=== PATIENT | male | born 1950 | race Caucasian/White ===

== ENCOUNTER 2019-03-12 10:07 | Emergency (ER) | payer MEDICARE, MEDICAID ==
[~2019-03-12] VITALS: Ht 187.9 cm; Wt 95.4 kg
[2019-03-12 10:35] LABS: BASOPHILS % (AUTO) 1 % (0-10); EOSINOPHILS % (AUTO) 1 % (0-10); HEMATOCRIT 40 % (40-54); HEMOGLOBIN 13.8 G/DL (13.3-17.7); LYMPHOCYTES % (AUTO) 31 % (12-44); MEAN CORPUSCULAR HEMOGLOBIN 30 PG (25-34); MEAN CORPUSCULAR HGB CONC 35 G/DL (32-36); MEAN CORPUSCULAR VOLUME 87 FL (80-99); MONOCYTES % (AUTO) 16 % (0-12); NEUTROPHILS % (AUTO) 52 % (42-75); PLATELET COUNT 180 10^3/uL (130-400); RED CELL DISTRIBUTION WIDTH 13.9 % (10.0-14.5)
[2019-03-12 10:36] LABS: BASOPHILS # (AUTO) 0.1 10^3/uL (0.0-0.1); EOSINOPHILS # (AUTO) 0.1 10^3/uL (0.0-0.3); LYMPHOCYTES # (AUTO) 2.1 X 10^3 (1.0-4.0); MONOCYTES # (AUTO) 1.1 X 10^3 (0.0-1.0); NEUTROPHILS # (AUTO) 3.6 X 10^3 (1.8-7.8)
--- NOTE | 2019-03-12 10:40 | ED General ---
General Chief Complaint: General Problems/Pain Stated Complaint: FALL; SYNCOPE Nursing Sepsis Screen: No Definite Risk Source of Information: Patient Exam Limitations: No Limitations History of Present Illness Date Seen by Provider: Mar 12, 2019 Time Seen by Provider: 10:15 Initial Comments The patient is a pleasant 68-year-old male who presents for evaluation of lightheadedness intermittently for the last week or so. He states that when he gets up from a seated or lying position and starts to walk he feels like his legs give out on him. He states that this feeling passes within minutes and then he feels okay. He denies chest pain or shortness of breath, fevers or chills, nausea or vomiting, dark or bloody stools, chest pain or shortness of breath, headache, palpitations, or syncope. He is alert and oriented 4, calm, and appears to be in no distress this time. Timing/Duration: 1 Week Severity: Mild Associated Systoms: Denies Symptoms Allergies and Home Medications Allergies Coded Allergies: No Known Drug Allergies (Unverified , 03/12/19) Patient Home Medication List Home Medication List Reviewed: Yes Review of Systems Review of Systems Constitutional: no symptoms reported EENTM: no symptoms reported Respiratory: no symptoms reported Cardiovascular: no symptoms reported Gastrointestinal: no symptoms reported Genitourinary: no symptoms reported Musculoskeletal: no symptoms reported Skin: no symptoms reported Psychiatric/Neurological: No Symptoms Reported, Other (light-headed) Hematologic/Lymphatic: No Symptoms Reported Immunological/Allergic: no symptoms reported All Other Systems Reviewed Negative Unless Noted: Yes Past Lzfgder-Gpqyny-Hcpvct Hx Past Med/Social Hx: Reviewed Nursing Past Med/Soc Hx Patient Social History Recent Foreign Travel: No Contact w/Someone Who Travel: No Recent Infectious Disease Expo: No Physical Abuse: No Sexual Abuse: No Mistreated: No Fear: No Physical Exam Vital Signs Vital Signs - First Documented 03/12/19 10:29 Temp 36.5 Pulse 73 Resp 18 B/P (MAP) 139/85 (103) Pulse Ox 99 O2 Delivery Room Air Capillary Refill : Less Than 3 Seconds Height, Weight, BMI Height: '" Weight: lbs. oz. 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59 4.35-5.85 10^6/uL Hemoglobin 13.8 13.3-17.7 G/DL Hematocrit 40 40-54 % Mean Corpuscular Volume 87 80-99 FL Mean Corpuscular Hemoglobin 30 25-34 PG Mean Corpuscular Hemoglobin Concent 35 32-36 G/DL Red Cell Distribution Width 13.9 10.0-14.5 % Platelet Count 180 130-400 10^3/uL Mean Platelet Volume 10.0 7.4-10.4 FL Neutrophils (%) (Auto) 52 42-75 % Lymphocytes (%) (Auto) 31 12-44 % Monocytes (%) (Auto) 16 H 0-12 % Eosinophils (%) (Auto) 1 0-10 % Basophils (%) (Auto) 1 0-10 % Neutrophils # (Auto) 3.6 1.8-7.8 X 10^3 Lymphocytes # (Auto) 2.1 1.0-4.0 X 10^3 Monocytes # (Auto) 1.1 H 0.0-1.0 X 10^3 Eosinophils # (Auto) 0.1 0.0-0.3 10^3/uL Basophils # (Auto) 0.1 0.0-0.1 10^3/uL Sodium Level 135 135-145 MMOL/L Potassium Level 3.8 3.6-5.0 MMOL/L Chloride Level 99 98-107 MMOL/L Carbon Dioxide Level 25 21-32 MMOL/L Anion Gap 11 5-14 MMOL/L Blood Urea Nitrogen 10 7-18 MG/DL Creatinine 0.98 0.60-1.30 MG/DL Estimat Glomerular Filtration Rate > 60 BUN/Creatinine Ratio 10 Glucose Level 110 H 70-105 MG/DL Calcium Level 8.4 L 8.5-10.1 MG/DL Corrected Calcium 9.0 8.5-10.1 MG/DL Magnesium Level 1.7 1.6-2.4 MG/DL Total Bilirubin 0.8 0.1-1.0 MG/DL Aspartate Amino Transf (AST/SGOT) 24 5-34 U/L Alanine Aminotransferase (ALT/SGPT) 33 0-55 U/L Alkaline Phosphatase 83 40-136 U/L Troponin I < 0.30 <0.30 NG/ML Total Protein 6.6 6.4-8.2 GM/DL Albumin 3.3 3.2-4.5 GM/DL My Orders Orders - KAYLIN POWELL DO Cbc With Automated Diff (03/12/19 10:15) Comprehensive Metabolic Panel (03/12/19 10:15) Magnesium (03/12/19 10:15) Ua Culture If Indicated (03/12/19 10:15) Ekg Tracing (03/12/19 10:15) Troponin I Fs (03/12/19 10:15) Ns Iv 1000 Ml (Sodium Chloride 0.9%) (03/12/19 10:45) Vital Signs/I&O 03/12/19 10:29 Temp 36.5 Pulse 73 Resp 18 B/P (MAP) 139/85 (103) Pulse Ox 99 O2 Delivery Room Air Capillary Refill : Less Than 3 Seconds Blood Pressure Mean: 103 Progress Note : Progress Note @1150 - patient updated on lab results. He has no complaints at this time states that he is feeling better. Advised the patient to allow extra time when going from a seated or lying position to standing up position to prevent lightheadedness. He expresses verbal understanding and agreement with the plan and is stable for discharge at this time. Advised the patient to follow up with his primary care physician within the next 2-3 days and to return to the emergency Department immediately for new or worsening symptoms. ECG EKG : Comment @1036 - Normal sinus rhythm, rate of 66, borderline left axis deviation, no acute ischemic findings noted, no STEMI, reviewed and interpreted by myself Departure Impression Primary Impression: Lightheadedness Additional Impression: Orthostatic dizziness Disposition: 01 HOME, SELF-CARE Condition: Stable Departure-Patient Inst. Decision time for Depature: 11:54 Referrals: [facility] [place] Patient Instructions: Dizziness, Nonvertigo, (DC) Add. Discharge Instructions: Follow-up with your doctor in the next 2-3 days. Return to the emergency Department immediately for new or worsening symptoms. When going from a seated or lying position give herself extra time before starting to walk so your blood pressure does not go too low. KAYLIN POWELL DO Mar 12, 2019 10:40
[2019-03-12] MEDS ORDERED: NS IV 1000 ML 1,000 ML IV SCH (10:45)
[2019-03-12 10:57] LABS: POTASSIUM 3.8 MMOL/L (3.6-5.0); SODIUM 135 MMOL/L (135-145)
[2019-03-12 10:58] LABS: ALANINE AMINOTRANSFERASE 33 U/L (0-55); ALKALINE PHOSPHATASE 83 U/L (40-136); BILIRUBIN,TOTAL 0.8 MG/DL (0.1-1.0); BUN/CREATININE RATIO 10; CALCIUM 8.4 MG/DL (8.5-10.1); CARBON DIOXIDE 25 MMOL/L (21-32); CHLORIDE 99 MMOL/L (98-107); CREATININE SERUM 0.98 MG/DL (0.60-1.30); GFR ESTIMATED > 60; GLUCOSE 110 MG/DL (70-105); MAGNESIUM 1.7 MG/DL (1.6-2.4); TOTAL PROTEIN 6.6 GM/DL (6.4-8.2)
[2019-03-12 10:59] LABS: ALBUMIN 3.3 GM/DL (3.2-4.5)
[2019-03-12 12:03] VITALS: BP 142/87
== END 2019-03-12 11:58 | disposition home or self-care (01) ==
LOC: EDUNIT# 10:07 → ER FS 10:08
DX: R42 Dizziness and giddiness (principal)
CPT/HCPCS: 36415; 80053; 83735; 84484; 85025; 93005; 96360

== ENCOUNTER → 2019-05-16 | Outpatient (CLI) | payer MEDICARE, MEDICAID ==
--- NOTE | 2019-05-16 10:45 | Diagnostic Imaging Report ---
PROCEDURE: CT head without contrast. TECHNIQUE: Multiple contiguous axial images were obtained through the brain without the use of intravenous contrast. Auto Exposure Controls were utilized during the CT exam to meet ALARA standards for radiation dose reduction. INDICATION: Head injury 2 months ago. Patient now complains of dizziness. No prior studies are available for comparison. There is generalized cerebral atrophy. There is periventricular hypodensity noted consistent with chronic microvascular ischemia. No sulcal effacement or midline shift is identified. No acute intra-axial or extra-axial hemorrhage is detected. Cisterns are patent. Visualized paranasal sinuses are clear. IMPRESSION: Chronic changes. No acute intracranial process is detected. Dictated by: Dictated on workstation # [id number]
== END ==
LOC: RAD FS 10:03
PROVIDERS: ATTEND Family Medicine
DX: S09.90XA Unspecified injury of head, initial encounter (principal); R42 Dizziness and giddiness; X58.XXXA Exposure to other specified factors, initial encounter
CPT/HCPCS: 70450

== ENCOUNTER → 2019-09-30 | Outpatient (CLI) | payer MEDICARE, MEDICAID ==
[~2019-09-30] MED LIST: GADOBUTROL 10 MMOL/10 ML (GADAVIST) VIAL IV ONE
[2019-09-30 12:21] LABS: ALBUMIN 4.5 GM/DL (3.2-4.5); POTASSIUM 4.5 MMOL/L (3.6-5.0)
[2019-09-30 12:23] LABS: CALCIUM 9.8 MG/DL (8.5-10.1)
[2019-09-30 12:24] LABS: TOTAL PROTEIN 8.3 GM/DL (6.4-8.2)
[2019-09-30 12:26] LABS: BILIRUBIN,TOTAL 0.5 MG/DL (0.1-1.0)
[2019-09-30 12:27] LABS: CREATININE SERUM 1.39 MG/DL (0.60-1.30)
--- NOTE | 2019-09-30 14:15 | Diagnostic Imaging Report ---
PROCEDURE: MR imaging of the brain with and without contrast. TECHNIQUE: Multiplanar, multisequence MR imaging of the brain was performed with and without contrast. INDICATION: Fall, hitting the back of the head. Patient now complains of headache and balance disturbance. COMPARISON: No prior MRI brain studies available for comparison. FINDINGS: Ventricles and sulci are prominent, consistent with cerebral atrophy. There are fairly significant periventricular and subcortical white matter signal abnormalities, consistent with chronic microvascular ischemia. No diffusion restriction is identified to suggest acute ischemia. The normal expected flow-voids within the carotid siphons are seen. There is no midline shift. No acute intra-axial or extra-axial hemorrhage is detected. No abnormal enhancement following contrast administration is identified. The corpus callosum is unremarkable. The sella and parasellar structures are unremarkable. IMPRESSION: Chronic changes, as described. No acute intracranial process is detected. Dictated by: Dictated on workstation # [id number]
== END ==
LOC: RAD 11:58
PROVIDERS: ATTEND Family Medicine
DX: R11.0 Nausea (principal); R42 Dizziness and giddiness
CPT/HCPCS: 36415; 70553; 80053

== ENCOUNTER 2021-04-05 14:11 | Emergency (ER) | payer MEDICARE, MEDICAID ==
[~2021-04-05] VITALS: Ht 187 cm; Wt 100.5 kg
[2021-04-05] MEDS ORDERED: ACETAMINOPHEN 500 MG TAB (TYLENOL) PO ONE (15:15)
[2021-04-05 15:25] LABS: BILIRUBIN,URINE NEGATIVE (NEGATIVE); CLARITY,URINE CLEAR; COLOR,URINE YELLOW; GLUCOSE, URINE (UA) NEGATIVE (NEGATIVE); KETONES,URINE NEGATIVE (NEGATIVE); LEUKOCYTE ESTERASE ,URINE NEGATIVE (NEGATIVE); NITRITE,URINE NEGATIVE (NEGATIVE); PH,URINE 5.5 (5-9); PROTEIN,URINE NEGATIVE (NEGATIVE)
[2021-04-05 15:33] LABS: BACTERIA,URINE NEGATIVE /HPF; WBC,URINE RARE /HPF
--- NOTE | 2021-04-05 15:56 | ED Abdominal Pain ---
General Chief Complaint: Abdominal/GI Problems Stated Complaint: ABD BULGE/PAIN Nursing Triage Note: Patient has presented to ER with cc of mid upper abd "bulging" off and on for the last 4 years. He reports that the area is sore and some times bulges out and some times not. He reports the area is sore. He also reports that he moved a chair a little over 2 weeks ago and about 2 weeks ago he developed a new pain in his right side. He reports the right side pain is worse when he moves or lifts or twists around. He has seen Dr. Dixon in the past about the mid upper abd pain but patient reports that nothing has ever been done about the pain. 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 Flank pain is worse with bending and rotation and is described as sharp and rated as mild to moderate. No midline pain or tenderness. No abdominal pain or tenderness. No testicular pain t enderness or hematuria. No history of kidney stones, AAA or diverticulitis. No fever chills nausea vomiting, sweats. No abdominal, pelvic pain. No constipation diarrhea, urinary frequency urgency or dysuria. No medications or therapies taken prior to ED arrival. Patient has not been evaluated by his PCP prior to today's ED visit. Timing/Duration: Changing Over Time, Other Severity/Quality: Mild Location: Other Radiation: Other Modifying Factors: Improves With Other Associated Symptoms: Other Allergies and Home Medications Allergies Coded Allergies: No Known Drug Allergies (Unverified , 03/12/19) Patient Home Medication List Home Medication List Reviewed: Yes Review of Systems Review of Systems Constitutional: see HPI EENTM: See HPI Respiratory: See HPI Cardiovascular: See HPI Gastrointestinal: See HPI Genitourinary: See HPI Musculoskeletal: see HPI Skin: see HPI Psychiatric/Neurological: See HPI Endocrine: See HPI Hematologic/Lymphatic: See HPI All Other Systems Reviewed Negative Unless Noted: Yes Past Lmwecuy-Tesoef-Vywbsz Hx Patient Social History Tobacco Use?: Yes Tobacco type used: Cigarettes Smoking Status: Heavy Tobacco Smoker Use of E-Cig and/or Vaping dev: No Substance use?: No Alcohol Use?: No Seasonal Allergies Seasonal Allergies: Yes Past Medical History Surgeries: Yes Coronary Stent Respiratory: No Cardiac: Yes Hypertension Neurological: No Genitourinary: No Gastrointestinal: No Musculoskeletal: No Endocrine: No HEENT: No Cancer: No Psychosocial: No Integumentary: No Blood Disorders: No Physical Exam Vital Signs Vital Signs - First Documented 04/05/21 14:31 Temp 37.1 Pulse 118 Resp 14 B/P (MAP) 152/89 (110) Pulse Ox 95 O2 Delivery Room Air Capillary Refill : Height/Weight/BMI Height: '" Weight: lbs. oz. kg; 28.00 BMI Method: General Appearance: WD/WN, no apparent distress HEENT: PERRL/EOMI, normal ENT inspection Neck: non-tender Respiratory: chest non-tender, lungs clear Cardiovascular: normal peripheral pulses, regular rate, rhythm Gastrointestinal: normal bowel sounds, non tender, soft, other (Large linea rectus hernia upon transitioning from seated to supine position.) Extremities: non-tender Back: normal inspection, no CVA tenderness, muscle spasm, other (Right paravertebral back pain/tenderness reproduces with palpation, lateral rotation. No rash identified. No midline pain tenderness.) Focused Exam Sepsis Stage: Ruled Out Progress/Results/Core Measures Results/Orders Lab Results Laboratory Tests Test 04/05/21 14:44 Range/Units Urine Color YELLOW Urine Clarity CLEAR Urine pH 5.5 5-9 Urine Specific Clark 1.020 1.016-1.022 Urine Protein NEGATIVE NEGATIVE Urine Glucose (UA) NEGATIVE NEGATIVE Urine Ketones NEGATIVE NEGATIVE Urine Nitrite NEGATIVE NEGATIVE Urine Bilirubin NEGATIVE NEGATIVE Urine Urobilinogen 0.2 < = 1.0 MG/DL Urine Leukocyte Esterase NEGATIVE NEGATIVE Urine RBC (Auto) NEGATIVE NEGATIVE Urine RBC NONE /HPF Urine WBC RARE /HPF Urine Squamous Epithelial Cells NONE /HPF Urine Crystals NONE /LPF Urine Bacteria NEGATIVE /HPF Urine Casts NONE /LPF Urine Mucus SMALL H /LPF Urine Culture Indicated NO My Orders Orders - MCKAYLA HOWE DO Urinalysis (04/05/21 15:09) Acetaminophen Tablet (Tylenol Tablet) (04/05/21 15:15) Medications Given in ED Current Medications Medications Dose Ordered Sig/Troy Route Start Time Stop Time Status Last Admin Dose Admin Acetaminophen 1,000 mg ONCE ONCE PO 04/05/21 15:15 04/05/21 15:16 DC 04/05/21 15:13 1,000 MG Vital Signs/I&O 04/05/21 14:31 Temp 37.1 Pulse 118 Resp 14 B/P (MAP) 152/89 (110) Pulse Ox 95 O2 Delivery Room Air Blood Pressure Mean: 110 Departure Communication (Admissions) UA. Patient with reproducible musculoskeletal pain without neurologic deficit. Tylenol given. 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 Recommendations are supportive care with PCP follow-up. Impression Primary Impression: Rectus diastasis Additional Impression: Acute lumbar back pain Disposition: HOME, SELF-CARE Condition: Stable Departure-Patient Inst. Decision time for Depature: 15:58 Referrals: SELF,VANESSA SNOW (PCP/Family) Primary Care Physician Patient Instructions: Abdominal Hernia (DC), Acute Pain, Adult Add. Discharge Instructions: Please take 650 mg of Tylenol 3 times daily for low back pain and Flexeril as directed. Avoid strenuous physical activity and heavy lifting. Follow-up with your PCP in 2 to 3 weeks for reevaluation. Return to the ED if new or worsening symptoms. All discharge instructions reviewed with patient and/or family. Voiced understanding. Scripts Acetaminophen (Acetaminophen) 650 Mg/20.3 Ml Solution 650 MG PO Q8H, #30 EA Prov: MCKAYLA HOWE DO 04/05/21 Cyclobenzaprine HCl (Cyclobenzaprine HCl) 10 Mg Tablet 10 MG PO TID, #30 TAB Prov: MCKAYLA HOWE DO 04/05/21 MCKAYLA HOWE DO Apr 05, 2021 15:56
[2021-04-05 15:57] VITALS: BP 129/76
[2021-04-05] MEDS ORDERED: CYCL10TA9 PO (16:00)
[2021-04-05] MEDS ORDERED: ACET650S27 PO (16:01)
[2021-04-05] MEDS ORDERED: ACET-93 PO (16:03)
== END 2021-04-05 16:07 | disposition home or self-care (01) ==
LOC: EDUNIT# 14:11 → ER FS 14:14
DX: M62.08 Separation of muscle (nontraumatic), other site (principal); I10 Essential (primary) hypertension; F17.210 Nicotine dependence, cigarettes, uncomplicated
CPT/HCPCS: 81000; 99283

== ENCOUNTER 2021-09-30 19:58 | Emergency (ER) | payer MEDICARE, MEDICAID ==
[~2021-09-30] VITALS: Ht 185.4 cm; Wt 100.0 kg
[~2021-09-30 19:58] MED LIST changes: +ACET-93 PO; +ACET650S27 PO; +CYCL10TA25 PO; -GADOBUTROL 10 MMOL/10 ML (GADAVIST) VIAL IV ONE
[2021-09-30 20:21] LABS: BASOPHILS % (AUTO) 0 % (0-10); EOSINOPHILS # (AUTO) 0.4 10^3/uL (0.0-0.3); EOSINOPHILS % (AUTO) 4 % (0-10); HEMATOCRIT 43 % (40-54); HEMOGLOBIN 14.9 g/dL (13.3-17.7); LYMPHOCYTES # (AUTO) 3.4 10^3/uL (1.0-4.0); LYMPHOCYTES % (AUTO) 33 % (12-44); MEAN CORPUSCULAR HEMOGLOBIN 30 pg (25-34); MEAN CORPUSCULAR HGB CONC 34 g/dL (32-36); MEAN CORPUSCULAR VOLUME 88 fL (80-99); MEAN PLATELET VOLUME 10.1 fL (9.0-12.2); MONOCYTES % (AUTO) 9 % (0-12); NEUTROPHILS # (AUTO) 5.5 10^3/uL (1.8-7.8); NEUTROPHILS % (AUTO) 54 % (42-75); PLATELET COUNT 203 10^3/uL (130-400); WHITE BLOOD COUNT 10.3 10^3/uL (4.3-11.0)
--- NOTE | 2021-09-30 20:23 | ED General ---
General Chief Complaint: Lower Extremity Stated Complaint: LEGS SWELLING Source of Information: Patient, Old Records History of Present Illness Date Seen by Provider: September 30, 2021 Time Seen by Provider: 20:01 Initial Comments 71-year-old male presenting with complaints of swelling and his legs. He felt like the right leg was worse than the left. This is been going on for the last several weeks since he moved out of [place] where he was living with His Common-Law . He has been sleeping and living in his car, except for short periods of time where he has been able to afford a hotel room. He has not tried to go to the clinic about his symptoms. He felt like he was having pain in the hip, right kidney and his right foot tonight so he came to the ED to be checked out. He denies having symptoms like this in the past. He complains that he has no place to live and that he does not have the funds to afford a place to live. He does state that the swelling and pain improves if he is able to lay down and elevate his legs. By morning after elevating his legs, his swelling is gone and his legs feels much better. Timing/Duration: Other (for several weeks since he moved out of [place] and has been living out of his car) Severity: Moderate Modifying Factors: improves with Other (elevating his legs helps the swelling resolve) Associated Systoms: No Chest Pain, No Cough, No Diaphoresis, No Fever/Chills, No Headaches, No Loss of Appetite, No Malaise, No Nausea/Vomiting, No Rash, No Seizure, No Shortness of Air, No Syncope, No Weakness Allergies and Home Medications Allergies Coded Allergies: No Known Drug Allergies (Unverified , 03/12/19) Patient Home Medication List Home Medication List Reviewed: Yes Acetaminophen (Acetaminophen) 500 Mg Tablet, 1,000 MG PO TID Prescribed by: MCKAYLA HOWE on 04/05/21 1603 Cyclobenzaprine HCl (Cyclobenzaprine HCl) 10 Mg Tablet, 10 MG PO TID Prescribed by: MCKAYLA HOWE on 04/05/21 1600 Review of Systems Review of Systems Constitutional: No chills, No fever EENTM: no symptoms reported Respiratory: no symptoms reported Cardiovascular: no symptoms reported Gastrointestinal: other (chronic abdominal wall hernia) Genitourinary: other (pain around right kidney at times) Musculoskeletal: see HPI Skin: No change in color; dryness (dry flaky skin) Psychiatric/Neurological: Denies Headache, Denies Numbness Hematologic/Lymphatic: Denies Blood Clots Past Qxgrtls-Tqbrvq-Uzgpwb Hx Patient Social History Tobacco Use?: No Substance use?: No Seasonal Allergies Seasonal Allergies: Yes Past Medical History Surgery/Hospitalization HX: Hypertension, CAD, Cardiac Stent, Abdominal wall hernia Surgeries: Yes Coronary Stent Respiratory: No Cardiac: Yes Hypertension Neurological: No Genitourinary: No Gastrointestinal: No Musculoskeletal: No Endocrine: No HEENT: No Cancer: No Psychosocial: No Integumentary: No Blood Disorders: No Physical Exam Vital Signs Vital Signs - First Documented 09/30/21 20:00 Temp 37.1 Pulse 90 Resp 18 B/P (MAP) 154/90 (111) Pulse Ox 98 O2 Delivery Room Air Capillary Refill : Height, Weight, BMI Height: '" Weight: lbs. oz. kg; 28.00 BMI Method: General Appearance: No Apparent Distress, WD/WN HEENT: PERRL/EOMI, Pharynx Normal Neck: Full Range of Motion, Normal Inspection, Non Tender, Supple Respiratory: Chest Non Tender, Lungs Clear, Normal Breath Sounds, No Accessory Muscle Use, No Respiratory Distress Cardiovascular: Regular Rate, Rhythm, Normal Peripheral Pulses Gastrointestinal: Normal Bowel Sounds, No Pulsatile Mass, Non Tender, Soft, Hernia (ventral abdominal wall hernia) Rectal: Deferred Back: CVA Tenderness (R) Extremity: Normal Capillary Refill, Pedal Edema (trace to 1+ pitting edema BLE with right slightly worse than the left) Neurologic/Psychiatric: Alert, Oriented x3, tree 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 helper II-XII Norm as Tested Skin: Warm/Dry, Other (dry flaky skin) Progress/Results/Core Measures Suspected Sepsis SIRS Temperature: Pulse: Respiratory Rate: Laboratory Tests 09/30/21 20:08: White Blood Count 10.3 Blood Pressure / Mean: Laboratory Tests 09/30/21 20:08: Creatinine 1.41H, INR Comment 0.9, Platelet Count 203, Total Bilirubin 0.4 Results/Orders Lab Results Laboratory Tests Test 09/30/21 20:08 09/30/21 20:20 Range/Units White Blood Count 10.3 4.3-11.0 10^3/uL Red Blood Count 4.92 4.30-5.52 10^6/uL Hemoglobin 14.9 13.3-17.7 g/dL Hematocrit 43 40-54 % Mean Corpuscular Volume 88 80-99 fL Mean Corpuscular Hemoglobin 30 25-34 pg Mean Corpuscular Hemoglobin Concent 34 32-36 g/dL Red Cell Distribution Width 14.6 H 10.0-14.5 % Platelet Count 203 130-400 10^3/uL Mean Platelet Volume 10.1 9.0-12.2 fL Immature Granulocyte % (Auto) 0 % Neutrophils (%) (Auto) 54 42-75 % Lymphocytes (%) (Auto) 33 12-44 % Monocytes (%) (Auto) 9 0-12 % Eosinophils (%) (Auto) 4 0-10 % Basophils (%) (Auto) 0 0-10 % Neutrophils # (Auto) 5.5 1.8-7.8 10^3/uL Lymphocytes # (Auto) 3.4 1.0-4.0 10^3/uL Monocytes # (Auto) 1.0 0.0-1.0 10^3/uL Eosinophils # (Auto) 0.4 H 0.0-0.3 10^3/uL Basophils # (Auto) 0.0 0.0-0.1 10^3/uL Immature Granulocyte # (Auto) 0.0 0.0-0.1 10^3/uL Prothrombin Time 12.7 12.2-14.7 SEC INR Comment 0.9 0.8-1.4 Activated Partial Thromboplast Time 27 24-35 SEC D-Dimer 0.62 H 0.00-0.49 UG/ML Sodium Level 139 135-145 MMOL/L Potassium Level 4.0 3.6-5.0 MMOL/L Chloride Level 102 98-107 MMOL/L Carbon Dioxide Level 25 21-32 MMOL/L Anion Gap 12 5-14 MMOL/L Blood Urea Nitrogen 22 H 7-18 MG/DL Creatinine 1.41 H 0.60-1.30 MG/DL Estimat Glomerular Filtration Rate 53 BUN/Creatinine Ratio 16 Glucose Level 95 70-105 MG/DL Calcium Level 9.3 8.5-10.1 MG/DL Corrected Calcium 9.3 8.5-10.1 MG/DL Total Bilirubin 0.4 0.1-1.0 MG/DL Aspartate Amino Transf (AST/SGOT) 15 5-34 U/L Alanine Aminotransferase (ALT/SGPT) 12 0-55 U/L Alkaline Phosphatase 70 40-136 U/L Pro-B-Type Natriuretic Peptide 80.8 H <75.0 PG/ML Total Protein 7.0 6.4-8.2 GM/DL Albumin 4.0 3.2-4.5 GM/DL Urine Color YELLOW Urine Clarity CLEAR Urine pH 6.0 5-9 Urine Specific Blach[place] >=1.030 1.016-1.022 Urine Protein NEGATIVE NEGATIVE Urine Glucose (UA) NEGATIVE NEGATIVE Urine Ketones NEGATIVE NEGATIVE Urine Nitrite NEGATIVE NEGATIVE Urine Bilirubin NEGATIVE NEGATIVE Urine Urobilinogen 0.2 < = 1.0 MG/DL Urine Leukocyte Esterase NEGATIVE NEGATIVE Urine RBC (Auto) NEGATIVE NEGATIVE Urine RBC NONE /HPF Urine WBC NONE /HPF Urine Squamous Epithelial Cells 10-25 H /HPF Urine Crystals NONE /LPF Urine Bacteria TRACE /HPF Urine Casts PRESENT /LPF Urine Coarse Granular Casts 0-2 H /LPF Urine Mucus LARGE H /LPF Urine Culture Indicated NO My Orders Orders - LUIS BRENNER MD Comprehensive Metabolic Panel (09/30/21 20:16) Ua Culture If Indicated (09/30/21 20:16) Ed Iv/Invasive Line Start (09/30/21 20:16) Cbc With Automated Diff (09/30/21 20:16) Fibrin Degradation Products (09/30/21 20:16) Protime With Inr (09/30/21 20:16) Partial Thromboplastin Time (09/30/21 20:16) Probnp Fs (09/30/21 20:16) Enoxaparin Injection (Lovenox Injection) (09/30/21 21:21) Vital Signs/I&O 09/30/21 09/30/21 20:00 21:45 Temp 37.1 Pulse 90 79 Resp 18 17 B/P (MAP) 154/90 (111) 151/81 Pulse Ox 98 97 O2 Delivery Room Air Room Air Capillary Refill : Progress Note #1: Progress Note Obtain basic labs and include clotting factors and D-dimer. Urinalysis to evaluate. UTI to evaluate for kidney injury or UTI since he complains of right kidney pain. Allow him to rest in bed with feet elevated while awaiting labs. Progress Note #2: Progress Note Labs are stable without elevated WBC count. Chemistry shows chronic renal insufficiency, electrolytes are stable. Coags normal but he had mild elevation of D dimer at 0.62. UA shows elevated specific gravity for dehydration but no sign of infection. Counseled pt on results and chance of DVT and need for Lovenox and Doppler. Tests did rule out CHF, renal failure, electrolyte imbalance. With the swelling going down with elevation it is more likely to be related to his sleeping in his car and having legs dependent but he states he gets out and walks around [employer] and other stores to get out of his vehicle and to have air conditioning without running his car constantly. He was advised of need to call to schedule ultrasound in the am and to go to [place] to have the test done to know if there was a blood clot present or not. Departure Impression Primary Impression: Right leg swelling Additional Impressions: Left leg swelling Elevated d-dimer Disposition: HOME, SELF-CARE Condition: Stable Departure-Patient Inst. Decision time for Depature: 21:21 Referrals: SELFVANESSA MD (PCP/Family) Primary Care Physician Patient Instructions: Doppler Ultrasound, Swelling Add. Discharge Instructions: Your blood work and urine test did not show signs of kidney infection, urine infection, heart failure, kidney failure, electrolyte problems. Your Urine was concentrated showing that you need to drink more water and fluids. Your blood work did show an elevated D Dimer test. This test can be elevated due to inflammation but can also be up if there is a blood clot in your leg causing the swelling. You were given a dose of a blood thinner tonight and you will need to call in the morning to Radiology scheduling between 7 and 730 am at [facility] at [phone]. They will set up a time for you to come to [place] to have the auto transmission technician perform an ultrasound on your legs to check for blood clots as a possible reason for the swelling and pain. If this is positive the Emergency Department physician in [place] will help with your treatment from there. If it is negative for a blood clot then this may just be related to circulation and you would need to try and elevate your legs and consider wearing compression stockings or hose to help with swelling. All discharge instructions reviewed with patient and/or family. Voiced understanding. LUIS BRENNER MD September 30, 2021 20:23
[2021-09-30 20:24] LABS: INR 0.9 (0.8-1.4); PROTHROMBIN TIME PATIENT 12.7 SEC (12.2-14.7)
[2021-09-30 20:28] LABS: BILIRUBIN,URINE NEGATIVE (NEGATIVE); CLARITY,URINE CLEAR; COLOR,URINE YELLOW; GLUCOSE, URINE (UA) NEGATIVE (NEGATIVE); KETONES,URINE NEGATIVE (NEGATIVE); LEUKOCYTE ESTERASE ,URINE NEGATIVE (NEGATIVE); NITRITE,URINE NEGATIVE (NEGATIVE); PROTEIN,URINE NEGATIVE (NEGATIVE)
[2021-09-30 20:31] LABS: BILIRUBIN,TOTAL 0.4 MG/DL (0.1-1.0); CALCIUM 9.3 MG/DL (8.5-10.1); CREATININE SERUM 1.41 MG/DL (0.60-1.30)
[2021-09-30 20:32] LABS: BACTERIA,URINE TRACE /HPF
[2021-09-30 21:08] LABS: FIBRIN DEGRADATION PRODUCTS 0.62 UG/ML (0.00-0.49)
[2021-09-30] MEDS ORDERED: ENOXAPARIN 100 MG/1 ML (LOVENOX) SYR SC STA (21:21)
[2021-09-30 21:45] VITALS: BP 151/81
== END 2021-09-30 21:45 | disposition home or self-care (01) ==
LOC: EDUNIT# 19:58 → ER FS 19:59
DX: M79.89 Other specified soft tissue disorders (principal); R79.1 Abnormal coagulation profile; I12.9 Hypertensive chronic kidney disease with stage 1 through stage 4 chronic kidney disease, or unspecified chronic kidney disease; N18.9 Chronic kidney disease, unspecified
CPT/HCPCS: 36415; 80053; 81000; 83880; 85025; 85379; 85610; 85730

== ENCOUNTER → 2021-10-03 | Outpatient (CLI) | payer MEDICARE, MEDICAID ==
--- NOTE | 2021-10-03 11:01 | Diagnostic Imaging Report ---
PROCEDURE: US Venous Lower Ext Shen. INDICATION: BILATERAL LEG SWELLING, ELEVATED D-DIMER TECHNIQUE: Multiple real-time grayscale images were obtained over the lower extremities in various projections, bilaterally. Additional duplex Doppler and color Doppler images were also obtained. CORRELATION STUDY: None FINDINGS: Color and grayscale sonographic images demonstrate no intraluminal defect within the visualized portion of the common femoral, superficial femoral and/or popliteal veins to suggest thrombus formation. These vessels demonstrate normal response to compression and augmentation. No soft tissue fluid collection. Mildly prominent left inguinal lymph node. IMPRESSION: 1. Negative for deep venous thrombosis of either leg. Dictated by: Dictated on workstation # [id number]
== END ==
LOC: RAD 10:00
PROVIDERS: ATTEND Family Medicine
DX: R22.43 Localized swelling, mass and lump, lower limb, bilateral (principal)
CPT/HCPCS: 93970

== ENCOUNTER → 2021-10-11 | Outpatient (CLI) | payer MEDICARE, MEDICAID ==
--- NOTE | 2021-10-11 15:51 | Diagnostic Imaging Report ---
INDICATION: Low back pain. TIME OF EXAM: 3:05 p.m. FINDINGS: Frontal and lateral views of the lumbar spine were obtained as well as coned lumbosacral views. Curvature and alignment of the lumbar spine is normal. Vertebral body heights are maintained. No acute compression fracture is seen. There is some mild generalized degenerative disc disease with variable disc space narrowing and marginal spurring. Abdominal aorta is calcified. IMPRESSION: Lumbar spondylosis. No acute bony abnormality is detected. Dictated by: Dictated on workstation # [id number]
== END ==
LOC: RAD FS 14:51
PROVIDERS: ATTEND Nurse Practitioner Family
DX: M47.816 Spondylosis without myelopathy or radiculopathy, lumbar region (principal)
CPT/HCPCS: 72100

== ENCOUNTER → 2021-12-15 | Outpatient (CLI) | payer MEDICARE, MEDICAID | LOC: CARDFS 10:17 | PROVIDERS: ATTEND Internal Medicine Cardiovascular Disease | DX: I25.10 Atherosclerotic heart disease of native coronary artery without angina pectoris (principal) | CPT/HCPCS: 93306 ==

== ENCOUNTER 2022-03-22 08:16 | Emergency (ER) | payer MEDICARE, MEDICAID ==
[~2022-03-22] VITALS: Ht 187 cm; Wt 100.0 kg
[2022-03-22 08:24] VITALS: BP 150/89
--- NOTE | 2022-03-22 08:52 | ED Trauma-Multisystem ---
General Chief Complaint: Trauma-Non Activation Stated Complaint: FALL; RT SHOULDER INJ Nursing Triage Note: Patient has presented to ER with cc of having a fall last night between 2099 and 0. He got up to go to the bathroom and fell. He made it back to bed. This morning when he woke up - he went to the bathroom and he could not open his left eye. It is swollen shut and purple. HE complains of lower left rib pain, and right upper arm and right shoulder pain. He did take ultram just before calling EMS. Source of Information: Patient Exam Limitations: No Limitations History of Present Illness Date Seen by Provider: Mar 22, 2022 Time Seen by Provider: 08:19 Initial Comments Patient is a 71-year-old male who presents to the ER with head injury, right shoulder injury left rib pain after falling last evening around 10 PM. States that he tripped while going to the bathroom. Patient went back to bed and woke up this morning noting his left eye was swollen closed. Reports right shoulder pain worse with movement left rib pain worse with palpation. He denies headache, ocular pain or neck pain, is not currently on anticoagulation therapy. He took 1 tramadol prior to calling EMS. Location Injury Occurred: HOME Occurred: Just Prior to Arrival Severity: Moderate Method of Injury: Other Modifying Factors: Other Associated Symptoms (Fall): Other Allergies and Home Medications Allergies Coded Allergies: No Known Drug Allergies (Unverified , 03/12/19) Patient Home Medication List Home Medication List Reviewed: Yes Acetaminophen (Acetaminophen) 500 Mg Tablet, 1,000 MG PO TID Prescribed by: MCKAYLA HOWE on 04/05/21 1603 Cyclobenzaprine HCl (Cyclobenzaprine HCl) 10 Mg Tablet, 10 MG PO TID Prescribed by: MCKAYLA HOWE on 04/05/21 1600 Review of Systems Review of Systems Constitutional: see HPI Eyes: See HPI Ears: See HPI Nose: See HPI Mouth: See HPI Throat: See HPI Respiratory: see HPI Cardiovascular: See HPI Gastrointestinal: see HPI Genitourinary: see HPI Musculoskeletal: see HPI Skin: see HPI Psychiatric/Neurological: See HPI All Other Systems Reviewed Negative Unless Noted: No Past Gvuyncc-Dhopst-Vodovv Hx Patient Social History Tobacco Use?: Yes Tobacco type used: Cigarettes Smoking Status: Former Smoker Use of E-Cig and/or Vaping dev: No Substance use?: No Alcohol Use?: No Pt feels they are or have been: No Immunizations Up To Date First/Initial COVID19 Vaccinat: denies Second COVID19 Vaccination Miguel: denies Third COVID19 Vaccination Date: denies Seasonal Allergies Seasonal Allergies: Yes Past Medical History Surgery/Hospitalization HX: Hypertension, CAD, Cardiac Stent, Abdominal wall hernia Surgeries: Yes Coronary Stent Respiratory: No Cardiac: Yes Hypertension Neurological: No Genitourinary: No Gastrointestinal: No Musculoskeletal: No Endocrine: No HEENT: No Cancer: No Psychosocial: No Integumentary: No Blood Disorders: No Physical Exam Vital Signs Vital Signs - First Documented 03/22/22 08:24 Temp 36.8 Pulse 122 Resp 16 B/P (MAP) 150/89 (109) Pulse Ox 95 O2 Delivery Room Air Height, Weight, BMI Height: '" Weight: lbs. oz. kg; 28.00 BMI Method: General Appearance: No Apparent Distress, WD/WN Eyes: Bilateral Eye Normal Inspection, Bilateral Eye PERRL, Bilateral Eye EOMI, Bilateral Eye Other (Left upper eyelid swelling with purpura) Ears, Nose, Throat: Hearing Grossly Normal, No Evidence of ENT Injury Neck: Full Range of Motion, Normal Inspection, Non Tender Cardiovascular: Regular Rate, Rhythm, No Edema Respiratory: Lungs Clear, Other (No subcutaneous emphysema or crepitus.) Gastrointestinal: Soft, Other (Left lower chest wall/rib pain/tenderness.) Extremity: Other (Right shoulder pain, tenderness, no bruising or deformity. Restricted active and passive range of motion secondary to pain.) Neurologic/Psychiatric: Alert, Oriented x3 Skin: Normal Color Progress/Results/Core Measures Results/Orders My Orders Orders - MCKAYLA HOWE DO Shoulder 3 View Right (03/22/22 08:21) Chest 1 View Ap/Pa Only (03/22/22 08:21) Ribs 2-3 View Left (03/22/22 08:21) Ct Head/Maxillofacial Wo (03/22/22 08:21) Vital Signs/I&O 03/22/22 08:24 Temp 36.8 Pulse 122 Resp 16 B/P (MAP) 150/89 (109) Pulse Ox 95 O2 Delivery Room Air Blood Pressure Mean: 109 Departure Communication (Admissions) CT head/maxillofacial: Nondisplaced sinus fracture Chest x-ray/rib series: Left-sided rib fracture Right shoulder: No fracture Patient with nondisplaced sinus fracture, left-sided rib fracture, right shoulder sprain. Supportive care recommended with ophthalmology follow-up. Patient instructed to avoid blowing nose, wear shoulder sling. Return precautions reviewed. Patient verbalizes understanding agreement discharge instructions prior to departure peer Impression Primary Impression: Maxillary sinus fracture Additional Impressions: Orbital contusion Shoulder sprain Rib fracture Disposition: 01 HOME, SELF-CARE Condition: Stable Departure-Patient Inst. Decision time for Depature: 09:48 Referrals: ECTOR THOMPSON APRN (PCP) Primary Care Physician [facility] (Family) Primary Care Physician Patient Instructions: Rib Fracture or Bruised Rib ED, Facial Fracture, Sprain (DC) Add. Discharge Instructions: You were evaluated in the emergency department for fall from standing resulting in a nondisplaced sinus fracture, orbital contusion, shoulder sprain and left rib fracture. Please apply ice to affected areas and take Tylenol and tramadol as needed for additional relief. Wear right shoulder sling for comfort and use incentive spirometry to assist with breathing, and avoid blowing your nose. Follow-up with local eye doctor in 3 to 5 days for evaluation of left eye and your PCP next week. Return to the ED if new or worsening symptoms. All discharge instructions reviewed with patient and/or family. Voiced understa nding. Scripts Tramadol HCl (Tramadol HCl) 50 Mg Tablet 50 MG PO Q6H PRN for PAIN for 3 Days, #12 TAB 0 Refills Prov: MCKAYLA HOWE DO 03/22/22 MCKAYLA HOWE DO Mar 22, 2022 08:54
--- NOTE | 2022-03-22 09:24 | Diagnostic Imaging Report ---
PROCEDURE: CT head and maxillofacial without contrast. TECHNIQUE: Multiple contiguous axial images were obtained through the head and facial bones without the use of intravenous contrast. Auto Exposure Controls were utilized during the CT exam to meet ALARA standards for radiation dose reduction. INDICATION: Head and facial trauma. COMPARISON: CT head of 05/16/2019. FINDINGS: Head: No intracranial hyperdense hemorrhage or space-occupying mass. No hydrocephalus or midline shift. Sarah-white matter differentiation is well-preserved. Mild global atrophy is unchanged. Stable periventricular hypoattenuation most compatible with chronic microvascular ischemic change. No skull fracture. Small air-fluid level left maxillary sinus. Face: There is moderate soft tissue swelling in the left periorbital region with a small amount of soft tissue gas in the left malar region. There is subtle buckling of the anterior wall of the left maxillary sinus without a displaced fracture. No fracture in the orbital floor or other parts of the orbits on either side. The zygomatic arches remain intact. No fracture of the nasal bones, osseous nasal septum or anterior nasal spine. No globe rupture or retrobulbar hematoma. Temporomandibular joints are normal alignment. No acute mandibular fracture. IMPRESSION: 1. No acute intracranial hemorrhage or skull fracture. 2. Left periorbital hematoma and soft tissue swelling with associated subcutaneous gas below the orbit. 3. The left maxillary sinus anterior wall has some slight buckling to it with adjacent soft tissue gas. Therefore, there is likely a nondisplaced fracture within the anterior wall of the left maxillary sinus. 4. Small layering air-fluid level in the left maxillary sinus would also support a nondisplaced fracture. 5. No orbital fracture on the left. Dictated by: Dictated on workstation # [id number]
--- NOTE | 2022-03-22 09:25 | Diagnostic Imaging Report ---
INDICATION: Trauma, pain COMPARISON: None available TECHNIQUE: Single radiograph chest chest dated 03/22/2022. FINDINGS: The cardiac silhouette is within normal limits in size. No significant pulmonary vascular congestion. Potential cortical irregularity of the lateral 6th rib is noted with additional cortical irregularity with additional lateral left-sided ribs. Additionally, opacities are noted along the left lateral chest wall. No large-volume pleural effusion. No pneumothorax. IMPRESSION: Questionable lateral left-sided rib fractures with adjacent pleural fluid or contusion. Recommend correlation for focal pain at this location. Dedicated radiographs of the left-sided ribs would help to further evaluate, particularly if patient is having focal pain at this location. Dictated by: Dictated on workstation # [id number]
--- NOTE | 2022-03-22 09:26 | Diagnostic Imaging Report ---
INDICATION: Fall, pain COMPARISON: Imaging from same date TECHNIQUE: 2 radiographs left-sided ribs dated 03/22/2022. FINDINGS: Acute minimally displaced fracture involving the lateral left 6th rib. No additional displaced or healing rib fracture. No large volume pleural effusion or pneumothorax. IMPRESSION: Acute minimally displaced lateral left 6th rib fracture. No large volume pleural effusion or pneumothorax. Dictated by: Dictated on workstation # [id number]
--- NOTE | 2022-03-22 09:27 | Diagnostic Imaging Report ---
INDICATION: Pain, trauma. COMPARISON: Imaging from same date TECHNIQUE: 3 radiographs right shoulder dated 03/22/2022. FINDINGS: Mild degenerative changes acromioclavicular joint. Chronic appearing deformity of the right clavicle. No acute fracture or dislocation. No destructive osseous process. No suspicious radiopaque foreign body. IMPRESSION: No acute osseous abnormality with mild degenerative changes and chronic appearing fracture deformity of the right clavicle. Dictated by: Dictated on workstation # [id number]
[2022-03-22] MEDS ORDERED: TRM50T PO (09:54)
== END 2022-03-22 10:00 | disposition home or self-care (01) ==
LOC: EDUNIT# 08:16 → ER FS 08:18
DX: S02.401A Maxillary fracture, unspecified side, initial encounter for closed fracture (principal); S22.32XA Fracture of one rib, left side, initial encounter for closed fracture; S43.402A Unspecified sprain of left shoulder joint, initial encounter; S05.12XA Contusion of eyeball and orbital tissues, left eye, initial encounter; F17.210 Nicotine dependence, cigarettes, uncomplicated; W01.0XXA Fall on same level from slipping, tripping and stumbling without subsequent striking against object, initial encounter
CPT/HCPCS: 70450; 70486; 71045; 71100; 73030

== ENCOUNTER → 2022-03-31 | Outpatient (CLI) | payer MEDICARE, MEDICAID ==
[~2022-03-31] MED LIST changes: +TRM50T PO
--- NOTE | 2022-03-31 14:18 | Diagnostic Imaging Report ---
INDICATION: Rib fracture. TIME OF EXAM: 10:20 a.m. Comparison is made with prior radiographs from 03/22/2022. FINDINGS: Previously noted fracture involving the left sixth posterolateral rib is again noted showing some mild displacement. Fracture line remains clearly visible. No additional rib fractures are seen. No parenchymal contusion, effusion, or pneumothorax is identified. IMPRESSION: Left posterolateral slightly displaced rib fracture, similar in appearance to exam 03/22/2022. Dictated by: Dictated on workstation # [id number]
--- NOTE | 2022-03-31 14:21 | Diagnostic Imaging Report ---
INDICATION: Fracture of the maxillary sinus. TIME OF EXAM: 10:24 a.m. FINDINGS: The paranasal sinuses appear to be fairly well aerated. No definite air-fluid levels are seen. No definite intraorbital gas is detected. No significant mucosal thickening is seen. IMPRESSION: No acute feature detected. Dictated by: Dictated on workstation # [id number]
== END ==
LOC: RAD FS 09:57
PROVIDERS: ATTEND Nurse Practitioner Family
DX: S22.32XD Fracture of one rib, left side, subsequent encounter for fracture with routine healing (principal); S02.401D Maxillary fracture, unspecified side, subsequent encounter for fracture with routine healing; W19.XXXD Unspecified fall, subsequent encounter
CPT/HCPCS: 70220; 71101

== ENCOUNTER → 2022-06-02 | Outpatient (CLI) | payer MEDICARE, MEDICAID ==
--- NOTE | 2022-06-02 15:15 | Diagnostic Imaging Report ---
INDICATION: Pain. COMPARISON: 03/22/2022. TECHNIQUE: Two radiographs of the right shoulder dated 06/02/2022. FINDINGS: Chronic fracture deformity of the mid clavicular shaft is again noted. Mild degenerative changes of the acromioclavicular joint. No acute fracture or dislocation. No destructive osseous process. Potential narrowing of the subacromial space. No suspicious radiopaque foreign body. Minimal degenerative changes in the glenohumeral joint. IMPRESSION: No acute fracture with moderate degenerative changes involving the acromioclavicular joint. Potential narrowing of the subacromial space, which can relate to underlying chronic rotator cuff tears. This could be further evaluated with MRI of the right shoulder as clinically indicated. Dictated by: Dictated on workstation # [id number]
== END ==
LOC: RAD FS 14:01
PROVIDERS: ATTEND Nurse Practitioner Family
DX: S49.91XD Unspecified injury of right shoulder and upper arm, subsequent encounter (principal); M19.011 Primary osteoarthritis, right shoulder; X58.XXXD Exposure to other specified factors, subsequent encounter
CPT/HCPCS: 73030